=== PATIENT | female | born 1950 | race Caucasian/White ===

== ENCOUNTER 2018-06-22 17:33 | Outpatient (REF) | payer MEDICARE, BC, SELFPAY ==
[2018-06-22 20:50] LABS: Anion Gap 8.7 mmol/L (3-11); BUN 9 mg/dL (7-18); CO2 30.3 mmol/L (21.0-32.0); CREATININE 0.67 mg/dL (0.55-1.02); Calcium 11.4 mg/dL (8.5-10.1); Chloride 102 mmol/L (98-107); Glucose 121 mg/dL (70-100); Potassium 4.2 mmol/L (3.5-5.1); Sodium 141 mmol/L (136-145); TSH 1.91 uIU/mL (0.358-3.74)
== END 2018-06-22 17:53 ==
LOC: NCHCN 17:33
PROVIDERS: PCP Internal Medicine; Visit Provider Internal Medicine
DX: E87.1 Hypo-osmolality and hyponatremia (principal)
CPT/HCPCS: 80048; 84443

== ENCOUNTER 2019-11-26 22:01 | Outpatient (REF) | payer MEDICARE, BC, SELFPAY ==
[2019-11-26 19:28] LABS: Anion Gap 10.1 mmol/L (3-11); BUN 10 mg/dL (7-18); CO2 28.9 mmol/L (21.0-32.0); CREATININE 0.61 mg/dL (0.55-1.02); Calcium 11.5 mg/dL (8.5-10.1); Chloride 101 mmol/L (98-107); Glucose 155 mg/dL (74-106); LDL CHOLESTEROL 137 mg/dL (<100); Potassium 4.1 mmol/L (3.5-5.1); Sodium 140 mmol/L (136-145); TSH 1.64 uIU/mL (0.36-3.74)
== END 2019-11-26 22:21 ==
LOC: NCHCN 22:01
PROVIDERS: PCP Internal Medicine; Visit Provider Internal Medicine
DX: Z00.00 Encounter for general adult medical examination without abnormal findings (principal)
CPT/HCPCS: 80048; 83721; 84443

== ENCOUNTER 2020-09-22 12:18 | Outpatient (REF) | payer MEDICARE, BC, SELFPAY ==
[2020-09-22 15:50] LABS: Anion Gap 6.2 mmol/L (3-11); BUN 12 mg/dL (7-18); CO2 32.8 mmol/L (21.0-32.0); CREATININE 0.7 mg/dL (0.55-1.02); Calcium 11.2 mg/dL (8.5-10.1); Chloride 99 mmol/L (98-107); Glucose 240 mg/dL (74-106); LDL CHOLESTEROL 137 mg/dL (<100); Potassium 4.1 mmol/L (3.5-5.1); Sodium 138 mmol/L (136-145); TSH 1.85 uIU/mL (0.36-3.74)
[2020-09-22 16:12] LABS: COMMENT (LAB VIEW ONLY) 37.66 mg/dL
== END 2020-09-22 12:19 | disposition home or self-care (01) ==
LOC: NCHCN 12:18
PROVIDERS: PCP Internal Medicine; Visit Provider Internal Medicine
DX: I10 Essential (primary) hypertension (principal); E11.9 Type 2 diabetes mellitus without complications
CPT/HCPCS: 80048; 83721; 82043; 82570; 84443

== ENCOUNTER 2021-09-28 15:47 | Outpatient (REF) | payer MEDICARE, BC, SELFPAY ==
[2021-09-28 19:38] LABS: Anion Gap 5.1 mmol/L (3-11); BUN 10 mg/dL (7-18); CO2 29.9 mmol/L (21.0-32.0); CREATININE 0.6 mg/dL (0.55-1.02); Calcium 11.5 mg/dL (8.5-10.1); Chloride 103 mmol/L (98-107); Glucose 166 mg/dL (74-106); Potassium 3.9 mmol/L (3.5-5.1); Sodium 138 mmol/L (136-145); TSH 2.06 uIU/mL (0.36-3.74)
== END 2021-09-28 15:48 | disposition home or self-care (01) ==
LOC: NCHCN 15:47
PROVIDERS: PCP Internal Medicine; Visit Provider Internal Medicine
DX: I10 Essential (primary) hypertension (principal); E11.9 Type 2 diabetes mellitus without complications; E83.52 Hypercalcemia
CPT/HCPCS: 80048; 84443

== ENCOUNTER 2023-01-20 18:43 | Outpatient (REF) | payer MEDICARE, BC, SELFPAY ==
[2023-01-20 20:10] LABS: Anion Gap 10.7 mmol/L (3-11); BUN 11 mg/dL (7-18); CO2 26.3 mmol/L (21.0-32.0); CREATININE 0.7 mg/dL (0.55-1.02); Calculated LDL 134 mg/dL (<100); Chloride 100 mmol/L (98-107); Cholesterol 222 mg/dL (<200); Estimated GFR 91.83 (mL/min/1.73m2); Glucose 218 mg/dL (74-106); HDL Cholesterol 60 mg/dL (40-60); Potassium 3.9 mmol/L (3.5-5.1); Sodium 137 mmol/L (136-145); Triglyceride 144 mg/dL (<150)
[2023-01-20 20:32] LABS: Calcium 11.7 mg/dL (8.5-10.1)
== END 2023-01-20 18:44 | disposition home or self-care (01) ==
LOC: NCHCN 18:43
PROVIDERS: PCP Internal Medicine; Visit Provider Internal Medicine
DX: I10 Essential (primary) hypertension (principal); E11.8 Type 2 diabetes mellitus with unspecified complications
CPT/HCPCS: 80048; 80061

== ENCOUNTER 2023-10-16 16:28 | Outpatient (REF) | payer MEDICARE, BC, SELFPAY ==
[2023-10-16 19:22] LABS: ALT 37 U/L (14-59); AST 19 U/L (15-37); Albumin 4.2 g/dL (3.4-5.0); Alkaline Phosphatase 107 U/L (46-116); Anion Gap 6.6 mmol/L (3-11); BUN 10 mg/dL (7-18); Bilirubin, Total 0.4 mg/dL (0.2-1.0); CO2 32.4 mmol/L (21.0-32.0); CREATININE 0.7 mg/dL (0.55-1.02); Calculated LDL 124 mg/dL (<100); Chloride 100 mmol/L (98-107); Cholesterol 222 mg/dL (<200); Estimated GFR 91.26 (mL/min/1.73m2); Glucose 216 mg/dL (74-106); HDL Cholesterol 63 mg/dL (40-60); Potassium 4.3 mmol/L (3.5-5.1); Sodium 139 mmol/L (136-145); Total Protein 8.3 g/dL (6.4-8.2); Triglyceride 176 mg/dL (<150)
[2023-10-16 19:52] LABS: Calcium 11.8 mg/dL (8.5-10.1)
== END 2023-10-16 16:29 | disposition home or self-care (01) ==
LOC: NCHCN 16:28
PROVIDERS: PCP Internal Medicine; Visit Provider Internal Medicine
DX: I10 Essential (primary) hypertension (principal)
CPT/HCPCS: 80053; 80061

== ENCOUNTER 2024-10-13 14:46 | Outpatient (REF) | payer MEDICARE, BC, SELFPAY ==
[2024-10-13 21:46] LABS: Anion Gap 5.4 mmol/L (3-11); BUN 11 mg/dL (7-18); CO2 31.6 mmol/L (21.0-32.0); CREATININE 0.7 mg/dL (0.55-1.02); Chloride 102 mmol/L (98-107); Glucose 284 mg/dL (74-106); Potassium 4.6 mmol/L (3.5-5.1); Sodium 139 mmol/L (136-145)
[2024-10-13 22:16] LABS: Calcium 11.6 mg/dL (8.5-10.1)
== END 2024-10-13 14:47 | disposition home or self-care (01) ==
LOC: NCHCN 14:46
PROVIDERS: PCP Internal Medicine; Visit Provider Internal Medicine
DX: I10 Essential (primary) hypertension (principal)
CPT/HCPCS: 80048

== ENCOUNTER 2025-04-13 11:52 | Outpatient (REF) | payer MEDICARE, BC, SELFPAY ==
[2025-04-13 21:51] LABS: Cholesterol 196 mg/dL (<200); HDL Cholesterol 55 mg/dL (>40)
== END 2025-04-13 11:53 | disposition home or self-care (01) ==
LOC: NCHCN 11:52
PROVIDERS: PCP Internal Medicine; Visit Provider Nurse Practitioner
DX: I10 Essential (primary) hypertension (principal)
CPT/HCPCS: 80061